=== PATIENT | female | born 1970 | race African-American/Black ===

== ENCOUNTER 2017-05-29 07:43 | Emergency (ER) | payer OTHER ==
[2017-05-29 07:57] VITALS: BP 126/73; PULSE 76; TEMP 98.6; BMI 34.4
--- NOTE | 2017-05-29 08:31 | PDOC ---
History of Present Illness - General Chief Complaint: ,Possible Stated Complaint: ITCHING Time Seen by Provider: 05/29/17 08:11 History Source: Patient Exam Limitations: No Limitations - History of Present Illness Travel History: No Initial Comments: 05/29/17 08:25 Patient came to emergency department for evaluation of worsening yEast infection vaginally. States is diabetic and has not checked her fingerstick recently, but states onset of this pain, burning and white thick discharge over 2 weeks ago. Timing/Duration: reports: constant, getting worse Quality: reports: moderate Alleviating Factors: improves with: None Past History - Travel Traveled outside of the country in the last 30 days: No Close contact w/someone who was outside of country & ill: No - Past Medical History Allergies/Adverse Reactions: Allergies Allergy/AdvReac Type Severity Reaction Status Date / Time chlorquinaldol Allergy Mild Itching Verified 05/29/17 07:56 Home Medications: Ambulatory Orders Metformin HCl [Glucophage] 1,000 mg PO BID 08/03/13 Glyburide 5 mg PO BID 02/06/16 Ramipril [Altace] 5 mg PO DAILY 02/06/16 Clotrimazole 45 gm TP BID #1 cream..g. 05/29/17 Fluconazole 150 mg PO ONCE #2 tablet 05/29/17 COPD: No Diabetes: Yes Thyroid Disease: Yes (hyperthyroid) - Surgical History Abdominal Surgery: Yes - Reproductive History (#): 10 Para: 6 - Immunization History Immunization Up to Date: Yes - Suicide/Smoking/Psychosocial Hx Smoking Status: No Smoking History: Never smoked Have you smoked in the past 12 months: No Number of Cigarettes Smoked Daily: 0 Information on smoking cessation initiated: No Hx Alcohol Use: No Drug/Substance Use Hx: No Substance Use Type: None Review of Systems - Review of Systems Able to Perform ROS?: Yes Is the patient limited Welsh proficient: Yes Constitutional: Yes: Symptoms Reported HEENTM: Yes: Symptoms Reported Respiratory: No: Symptoms reported ABD/GI: Yes: Symptoms Reported, See HPI : Yes: Symptoms Reported, See HPI, Burning (with itching) All Other Systems: Reviewed and Negative *Physical Exam - Vital Signs Last Vital Signs Temp Pulse Resp BP Pulse Ox 98.6 F 76 18 126/73 100 05/29/17 07:49 05/29/17 07:49 05/29/17 07:49 05/29/17 07:49 05/29/17 07:49 - Physical Exam General Appearance: Yes: Nourished, Appropriately Dressed, Apparent Distress, Mild Distress, Moderate Distress HEENT: positive: TABITHA, Normal ENT Inspection, TMs Normal, Pharynx Normal Neck: positive: Tender, Supple. negative: Lymphadenopathy (R), Lymphadenopathy (L) Respiratory/Chest: positive: Lungs Clear, Normal Breath Sounds Female Pelvic Exam: positive: discharge, other (erythema ). negative: CMT Integumentary: positive: Normal Color, Erythema, Moist, Rash Neurologic: positive: administrative support manager II-XII NML intact, Fully Oriented, Normal Mood/Affect , Normal Response, Motor Strength /5 Progress Note - Progress Note Progress Note: Significant yeast infection vulva and vaginal. HCG negative *DC/Admit/Observation/Transfer Diagnosis at time of Disposition: Vulvovaginal itching - Discharge Dispostion Disposition: HOME Condition at time of disposition: Stable Admit: No - Prescriptions Prescriptions: Clotrimazole 45 gm TP BID #1 cream..g. Fluconazole 150 mg PO ONCE #2 tablet - Referrals - Patient Instructions Printed Discharge Instructions: DI for Vaginal Yeast Infection Additional Instructions: Rest, avoid tight fitting close Soak self warm sitz baths and keep perineum is clean as possible May use clotrimazole cream to outer edges of yeast infection Diflucan 1 tablet 150 mg today. May repeat in one week if symptoms persist Follow-up with [facility] next week for reevaluation check fingersticks to avoid hyperglycemia - Post Discharge Activity Forms/Work/School Notes: Back to Work
== END 2017-05-29 09:22 | disposition home or self-care (01) ==
LOC: JER 07:43 → JERFT 07:43
DX: B37.3 Candidiasis of vulva and vagina (principal)
CPT/HCPCS: 36415; 84703; 87070; 87205; 99281-25